=== PATIENT | female | born 2000 | race Caucasian/White ===

== ENCOUNTER → 2019-12-23 | Outpatient (CLI) | payer BC, SELFPAY ==
[2019-12-26 03:06] LABS: Chlamydia By Nucleic Acid AMP Negative (Negative)
[2019-12-26 14:07] LABS: Gonococcus By Nucleic Acid AMP Negative (Negative)
== END | disposition home or self-care (01) ==
PROVIDERS: Visit Provider Obstetrics & Gynecology
DX: Z11.3 Encounter for screening for infections with a predominantly sexual mode of transmission (principal)
CPT/HCPCS: 87491; 87591

== ENCOUNTER → 2020-01-08 13:00 | Outpatient (CLI) | payer BC, SELFPAY ==
[2020-01-08 15:56] LABS: Absolute Lymphocyte Count 2.34 X10^3/uL (0.83-4.51); Absolute Neutrophil Count 5.1 X10^3/uL (2.0-7.7); Basophil# 0.03 X10^3/uL; Basophil% 0.4 % (0-1); Eosinophil# 0.12 X10^3/uL; Eosinophils% 1.5 % (0-5); Hematocrit 37.9 % (37-47); Hemoglobin 12.6 g/dL (12.0-15.0); Lymphocyte # 2.34 X10^3/ul (4.0); Lymphocyte % 28.4 % (19-41); Mean Corp Hgb Conc 33.2 g/dL (32-36); Mean Corpuscular Hgb 29.4 pg (27.0-32.0); Mean Corpuscular Volume 88.6 fL (81-99); Mean Platelet Vol. 12.2 fl (6.2-12.0); Monocyte# 0.59 X10^3/uL; Monocyte% 7.2 % (0-10); NRBC Flagged by Analyzer 0 % (0-5); Neutrophil # 5.14 X10^3/uL (2.7-7.7); Neutrophil % 62.1 % (47-70); Platelet Count 223 K/mm3 (150-450); RBC Distribution Width CV 13.2 % (11.6-14.6); Red Blood Count 4.28 M/mm3 (4.2-5.4); White Blood Count 8.3 K/mm3 (4.4-11.0)
[2020-01-11 18:03] LABS: HIV - WCH Non-Reactive (Nonreactive); Hepatitis B Surface Antigen Non-Reactive (Nonreactive); Hepatitis C Antibody Non-Reactive (Nonreactive); Rubella IgG 58.6 IU/mL
[2020-01-14 01:11] LABS: Prenatal RPR NONREACTIVE (NONREACTIVE)
== END ==
PROVIDERS: Visit Provider Obstetrics & Gynecology
DX: Z34.81 Encounter for supervision of other normal pregnancy, first trimester (principal)
CPT/HCPCS: 85025; 86703; 86762; 86803; 87086; 87340

== ENCOUNTER → 2020-06-21 16:47 | Outpatient (CLI) | payer BC, MEDICAID, SELFPAY ==
--- NOTE | 2020-06-21 16:55 | EKG12_ITS ---
Test Reason : SYNCOPE Blood Pressure : / mmHG Vent. Rate : 074 BPM Atrial Rate : 074 BPM P-R Int : 120 ms QRS Dur : 086 ms QT Int : 352 ms P-R-T Axes : 019 075 039 degrees QTc Int : 390 ms Normal sinus rhythm with sinus arrhythmia Normal ECG Confirmed by ANNE SEN, JOSEY ([id number]), science editor FRANK RODRIGUEZ ([id number]) on 06/24/2020 2:31:58 PM Referred By: Michael Benjamin Confirmed By:JOSEY RODRÍGUEZ MD
== END ==
PROVIDERS: Referring Provider Obstetrics & Gynecology; Visit Provider Obstetrics & Gynecology
DX: O99.891 Other specified diseases and conditions complicating pregnancy (principal); R00.2 Palpitations; Z3A.00 Weeks of gestation of pregnancy not specified
CPT/HCPCS: 93005

== ENCOUNTER → 2020-07-14 | Outpatient (CLI) | payer BC, MEDICAID, SELFPAY | END | disposition home or self-care (01) | PROVIDERS: Visit Provider Obstetrics & Gynecology | DX: Z36.85 Encounter for antenatal screening for Streptococcus B (principal) | CPT/HCPCS: 87081 ==

== ENCOUNTER 2020-07-25 07:15 | Inpatient (IN) | payer BC, MEDICAID, SELFPAY ==
[2020-07-25] VITALS (63 sets, daily range): BP systolic 94–147; BP diastolic 50–92; PULSE 66–129; RESP 18; TEMP 35.7–37.2; O2SAT 95–100; BMI 29.9
[2020-07-25] MEDS: 0.9% Saline Lock 10 ML Syringe IV ×3 (07:44→20:46)
[2020-07-25 08:03] LABS: Absolute Lymphocyte Count 2.14 X10^3/uL (0.83-4.51); Absolute Neutrophil Count 4.8 X10^3/uL (2.0-7.7); Basophil# 0.03 X10^3/uL; Basophil% 0.4 % (0-1); Eosinophil# 0.09 X10^3/uL; Eosinophils% 1.2 % (0-5); Hematocrit 35.8 % (37-47); Hemoglobin 11.5 g/dL (12.0-15.0); Lymphocyte # 2.14 X10^3/ul (0.83-4.51); Lymphocyte % 27.9 % (19-41); Mean Corp Hgb Conc 32.1 g/dL (32-36); Mean Corpuscular Hgb 28.5 pg (27.0-32.0); Mean Corpuscular Volume 88.6 fL (81-99); Mean Platelet Vol. 13.4 fl (6.2-12.0); Monocyte# 0.62 X10^3/uL; Monocyte% 8.1 % (0-10); NRBC Flagged by Analyzer 0 % (0-5); Neutrophil # 4.78 X10^3/uL (2.7-7.7); Neutrophil % 62.1 % (47-70); Platelet Count 153 K/mm3 (150-450); RBC Distribution Width CV 12.5 % (11.6-14.6); RBC Distribution Width SD 40.8 fl (35.1-43.9); Red Blood Count 4.04 M/mm3 (4.2-5.4); White Blood Count 7.7 K/mm3 (4.4-11.0)
[2020-07-25 08:38] LABS: ALB/GLOB Ratio 0.7 RATIO (0.9-2.4); AST(SGOT) 15 U/L (15-37); Alanine Aminotransfer ALT/SGPT 13 U/L (13-56); Albumin, Serum 2.6 g/dL (3.2-5.0); Alkaline Phosphatase 131 U/L (45-117); Anion Gap 7 (5-15); BUN 11 mg/dL (7-18); BUN/Creat Ratio 12.9 RATIO (10-20); Calcium,Total 8.9 mg/dL (8.5-10.1); Chloride 109 mmol/L (98-107); Creatinine, Serum 0.86 mg/dL (0.55-1.02); EST Glomerular Filtration Rate 88 mL/min (>60); Est Glom Filt Rate - Afr Amer 106 mL/min (>60); Estimated Creatinine Clearance 81.15 ml/min; Globulin 3.9 g/dL (2.2-4.2); Glucose 85 mg/dL (74-106); LDH 188 U/L (84-246); Potassium 3.7 mmol/L (3.5-5.1); Protein, Total 6.5 g/dL (6.4-8.2); Sodium Level 139 mmol/L (136-145)
[2020-07-25] MEDS: Lactated Ringers 1,000 ML 50 ML IV (08:42)
--- NOTE | 2020-07-25 08:56 | PCM.HP.BLA ---
History and Physical Date of Admission: 07/25/20 Chief complaint: Induction of labor IUGR History of present illness: 20-year-old G1, P0 at 38 weeks and 2 days with GUERDA: 08/06/2020 by LMP arrives for induction of labor for IUGR. Denies headache, visual changes, chest pain, shortness of breath, right upper quadrant pain. Patient states good movement. Obstetrical history: G1: Current Past medical history: None Medications: vitamin Past surgical history: None Allergies: No known drug allergies Social history: Denies history of smoking, alcohol use, drug use Family history: Denies history of DVT or PE Review of systems: Besides above pertinent positive for review of systems performed found to be negative Physical exam: Vitals: Blood pressure 123/59 pulse 77 SPO2 100% on room air General: Normal-appearing no acute distress HEENT: Normocephalic atraumatic no cervical lymphadenopathy. Pupils equal round and reactive to light Cardiac: Regular rate and rhythm no murmurs rubs or gallops Respiratory: Clear to auscultation bilaterally with no wheezes rales or crackles Abdomen: Soft, nontender, gravid Extremities: No peripheral edema normal peripheral pulses. Full range of motion in all extremities, strength 5 out of 5 in all extremities Neuro: Negative clonus, DTRs +2 in lower and upper extremities. Psych: Normal affect normal demeanor nonpressured speech Assessment and plan: 20-year-old G1, P0 at 30 weeks and 2 days arrives for induction of labor for IUGR and upon placing IV patient experienced loss of consciousness that lasted according nursing 20 seconds. Patient had small amounts of shaking during this time, a shivering motion, no obvious tonic-clonic movements. Patient recovered answering questions with no deficits, no loss of bladder. Overall within 10 to 20 minutes felt back to her baseline. Patient with a history of vasovagal x1 this but this was shorter and no shaking at that time witnessed by her FOB. The above was all witnessed by nursing, upon my examination patient comfortable in bed no overall deficits AOA x3, follows commands, no apparent distress. Patient states she does not remember the 20 seconds but feels that she is quickly recovered. heart tones overall remained stable with broken heart rate tracing around the time of incident. Blood pressures 90s/50s prior to IV placement, at this time vital signs stable. Discussed clinical picture with nursing staff and patient. EKG ordered. Cannot rule out eclampsia we will start magnesium 4 g bolus of 2 g an hour. Help labs with proteinuria. Will consult neurology stat and discuss their opinion. With patient remote from delivery discussed possible with patient. For now we will continue to monitor with category 1 tracing, vital signs stable. To make delivery decision after neurology consult, continue magnesium.
[2020-07-25 09:07] LABS: Protein:Creat Ratio 618 mg/g CRE (0-200)
--- NOTE | 2020-07-25 09:12 | TELEMED_ITS ---
[facility] has confirmed receipt of a request for visit. This document confirms receipt of the order initiating the consult. To find the results of the consultation, please view the patient's reports for the scanned Telemed Consult.
[2020-07-25] MEDS: Magnesium Sulfate 4gm/100mL 4 GM/100 ML IV.SOLN. IV (09:25)
--- NOTE | 2020-07-25 09:29 | EKG12_ITS ---
Test Reason : SIEZER Blood Pressure : / mmHG Vent. Rate : 098 BPM Atrial Rate : 098 BPM P-R Int : 118 ms QRS Dur : 086 ms QT Int : 344 ms P-R-T Axes : 052 069 027 degrees QTc Int : 439 ms Normal sinus rhythm Normal ECG When compared with ECG of 21-JUN-2020 17:09, No significant change was found Confirmed by SONIA SEN, [place] ([id number]), editor greeting card GUY LEACH ([id number]) on 07/26/2020 8:52:09 AM Referred By: IRMA ONEAL Confirmed By:NY SCOTT MD
[2020-07-25] MEDS: Magnesium Sulfate 20 GM/500 ML BAG IV (09:45)
--- NOTE | 2020-07-25 11:55 | PCM.PN.OB ---
Subjective Subjective: Patient resting comfortably in bed. No deficits. Denies headache, visual change, chest pain, shortness of breath, nausea vomiting, right upper quadrant pain. Objective Data Objective Data Vital Signs: Vital Signs Temp Pulse Resp BP Pulse Ox 96.3 F L 86 18 122/65 H 100 07/25/20 09:50 07/25/20 11:06 07/25/20 10:55 07/25/20 10:58 07/25/20 11:06 Oxygen Delivery Method Room Air Weight: 163 lb 12.855 oz Body Mass Index (BMI) 29.9 Intake & Output: Intake and Output for Last 24 Hours 07/23/20 07/24/20 07/25/20 23:59 23:59 23:59 Intake Total 270.83 / 270.83 Balance 270.83 / 270.83 Lab / Micro Data Result Diagrams: 07/25/20 07:44 07/25/20 08:10 Labs: Laboratory Results - last 24 hr 07/25/20 07/25/20 07/25/20 07:44 07:44 08:10 WBC 7.7 RBC 4.04 L Hgb 11.5 L Hct 35.8 L MCV 88.6 MCH 28.5 MCHC 32.1 RDW Std Deviation 40.8 RDW Coeff of Michelle 12.5 Plt Count 153 MPV 13.4 H Immature Gran % (Auto) 0.300 Neut % (Auto) 62.1 Lymph % (Auto) 27.9 Mcpherson % (Auto) 8.1 Eos % (Auto) 1.2 Baso % (Auto) 0.4 Absolute Neuts (auto) 4.8 Absolute Lymphs (auto) 2.14 Nucleated RBC % 0 Sodium 139 Potassium 3.7 Chloride 109 H Carbon Dioxide 23.0 Anion Gap 7 BUN 11 Creatinine 0.86 Estim Creat Clear Calc 81.15 Est GFR (MDRD) Af Amer 106 Est GFR (MDRD) Non-Af 88 BUN/Creatinine Ratio 12.9 Glucose 85 Calcium 8.9 Total Bilirubin 0.50 AST 15 ALT 13 Alkaline Phosphatase 131 H Lactate Dehydrogenase 188 Total Protein 6.5 Albumin 2.6 L Globulin 3.9 Albumin/Globulin Ratio 0.7 L U Random Total Protein Urine Creatinine Protein/Creatinin Ratio Blood Type O POSITIVE Antibody Screen NEGATIVE 07/25/20 08:30 WBC RBC Hgb Hct MCV MCH MCHC RDW Std Deviation RDW Coeff of Michelle Plt Count MPV Immature Gran % (Auto) Neut % (Auto) Lymph % (Auto) Mcpherson % (Auto) Eos % (Auto) Baso % (Auto) Absolute Neuts (auto) Absolute Lymphs (auto) Nucleated RBC % Sodium Potassium Chloride Carbon Dioxide Anion Gap BUN Creatinine Estim Creat Clear Calc Est GFR (MDRD) Af Amer Est GFR (MDRD) Non-Af BUN/Creatinine Ratio Glucose Calcium Total Bilirubin AST ALT Alkaline Phosphatase Lactate Dehydrogenase Total Protein Albumin Globulin Albumin/Globulin Ratio U Random Total Protein 170.0 H Urine Creatinine 275.00 Protein/Creatinin Ratio 618 H Blood Type Antibody Screen Micro: Microbiology 07/25/20 08:05 Mucosa - Nose SARS-CoV-2 Antigen (Rapid) - Final Physical Exam Const alert, oriented x3 and no apparent distress HEENT normocephalic Head and Scalp: atraumatic Eyes PERRL Neck full ROM Resp normal respiratory effort, no retractions and no use of accessory muscles Extremity normal to inspection, full ROM and no clubbing, cyanosis or edema Psych mental status grossly normal, affect normal and speech normal Assessment & Plan (1) : PLAN: Patient seen and examined. With no changes. Still feeling well. Discussed case with neurology and patient was seen virtually with neurology. Based on negative exam and history neurology believes it to be syncope. No concerns for epilepsy or eclampsia per their recommendations. Based on diagnosis of syncope discussed case with patient. HELLP labs negative except for proteinuria cannot rule out contamination versus gestational proteinuria with no elevated blood pressures and the fact that diagnosis of syncope and not seizure has been made no concern for eclampsia. Reviewed options with patient risk benefits alternatives who feels comfortable continuing induction of labor. Category 1 tracing. We will continue Cytotec induction. Educated patient on syncope during labor and its risks. Patient states understanding wish to proceed.
[2020-07-25] MEDS: miSOPROStol 25 MCG TABLET VAGINAL (12:05)
[2020-07-25] MEDS: fentaNYL 100 MCG/2 ML Ampul IV (16:51)
[2020-07-25] MEDS: Oxytocin 30 units/NS 500 ml 30 UNITS/500 ML IV.SOLN 334 UNITS IV (18:16)
[2020-07-25] MEDS: Methylergonovine 0.2 MG/ML Ampul IM (18:19)
[2020-07-25] MEDS: HYDROmorphone 1 MG/ML Syringe IV (18:40)
--- NOTE | 2020-07-25 18:57 | EX.PCM.OBRPT ---
Vaginal Delivery Operative Information Date of Procedure: 07/25/20 Pre-Operative Diagnosis: Term, IUGR Post-Operative Diagnosis: Term, IUGR Findings Description of Procedure: Normal spontaneous vaginal delivery of a viable female , vertex LIZETT. Head and shoulders delivered with ease. Cord cut clamped. Baby handed off to nursing. Placenta delivered via manual extraction secondary to cord avulsion. IV oxytocin was initiated to facilitate uterine contractions. 0.2 mg Methergine IM given. First-degree midline perineal laceration noted and repaired in typical fashion. EBL 400 cc Apgars 9/9
[2020-07-25] MEDS: Ibuprofen 600 MG Tablet PO (20:36)
[2020-07-26 00:46] VITALS: BP 123/57; PULSE 89; RESP 16; TEMP 37.1
[2020-07-26 03:55] VITALS: BP 115/60; PULSE 87; RESP 14; TEMP 36.9
--- NOTE | 2020-07-26 06:09 | PCM.PN.OB ---
Subjective Subjective: day 1 status post . Lochia minimal. Pain controlled. Breast-feeding. No further episodes of syncope per patient or her . No confusion, dizziness, lightheadedness.No headache, vision changes, chest pain, shortness of breath, nausea or vomiting. No right upper quadrant pain. Objective Data Objective Data Vital Signs: Vital Signs Temp Pulse Resp BP Pulse Ox 98.5 F 87 14 115/60 100 07/26/20 03:55 07/26/20 03:55 07/26/20 03:55 07/26/20 03:55 07/25/20 20:53 Oxygen Delivery Method Room Air Weight: 74.3 kg Body Mass Index (BMI) 29.9 Intake & Output: Intake and Output for Last 24 Hours 07/24/20 07/25/20 07/26/20 23:59 23:59 23:59 Intake Total 1249.16 / 1249.16 Output Total 150 / 150 100 / 100 Balance 1099.16 / 1099.16 -100 / -100 Lab / Micro Data Result Diagrams: 07/25/20 07:44 07/25/20 08:10 Labs: Laboratory Results - last 24 hr 07/25/20 07/25/20 07/25/20 07:44 07:44 08:10 WBC 7.7 RBC 4.04 L Hgb 11.5 L Hct 35.8 L MCV 88.6 MCH 28.5 MCHC 32.1 RDW Std Deviation 40.8 RDW Coeff of Michelle 12.5 Plt Count 153 MPV 13.4 H Immature Gran % (Auto) 0.300 Neut % (Auto) 62.1 Lymph % (Auto) 27.9 [place] % (Auto) 8.1 Eos % (Auto) 1.2 Baso % (Auto) 0.4 Absolute Neuts (auto) 4.8 Absolute Lymphs (auto) 2.14 Nucleated RBC % 0 Sodium 139 Potassium 3.7 Chloride 109 H Carbon Dioxide 23.0 Anion Gap 7 BUN 11 Creatinine 0.86 Estim Creat Clear Calc 81.15 Est GFR (MDRD) Af Amer 106 Est GFR (MDRD) Non-Af 88 BUN/Creatinine Ratio 12.9 Glucose 85 Calcium 8.9 Total Bilirubin 0.50 AST 15 ALT 13 Alkaline Phosphatase 131 H Lactate Dehydrogenase 188 Total Protein 6.5 Albumin 2.6 L Globulin 3.9 Albumin/Globulin Ratio 0.7 L U Random Total Protein Urine Creatinine Protein/Creatinin Ratio Blood Type O POSITIVE Antibody Screen NEGATIVE 07/25/20 08:30 WBC RBC Hgb Hct MCV MCH MCHC RDW Std Deviation RDW Coeff of Michelle Plt Count MPV Immature Gran % (Auto) Neut % (Auto) Lymph % (Auto) [place] % (Auto) Eos % (Auto) Baso % (Auto) Absolute Neuts (auto) Absolute Lymphs (auto) Nucleated RBC % Sodium Potassium Chloride Carbon Dioxide Anion Gap BUN Creatinine Estim Creat Clear Calc Est GFR (MDRD) Af Amer Est GFR (MDRD) Non-Af BUN/Creatinine Ratio Glucose Calcium Total Bilirubin AST ALT Alkaline Phosphatase Lactate Dehydrogenase Total Protein Albumin Globulin Albumin/Globulin Ratio U Random Total Protein 170.0 H Urine Creatinine 275.00 Protein/Creatinin Ratio 618 H Blood Type Antibody Screen Micro: Microbiology 07/25/20 08:05 Mucosa - Nose SARS-CoV-2 Antigen (Rapid) - Final ROS Constitutional Constitutional: Denies fever(s) Eyes Eyes: Denies change in vision ENT HEENT: Denies dizziness or headache(s) Cardiovascular Cardiovascular: Denies chest pain or dyspnea Respiratory/Chest Respiratory/Chest: Denies cough Gastrointestinal Gastrointestinal: Denies constipation, diarrhea or vomiting Genitourinary Genitourinary: Denies difficulty urinating Musculoskeletal Musculoskeletal: Denies difficulty walking Integumentary Integumentary: Denies rash Neurologic Neurologic: Denies confusion, dizziness, headache(s), seizures, syncope or weakness Physical Exam Const alert, oriented x3 and no apparent distress HEENT normocephalic Head and Scalp: atraumatic Eyes PERRL Neck full ROM Resp normal respiratory effort and clear to auscultation bilaterally Cardio regular rate and regular rhythm GI normal to inspection, nondistended, normoactive bowel sounds GI Narrative: Uterus 2 cm below umbilicus Extremity no pedal edema Skin no rashes or lesions noted Neuro moves all extremities, no focal motor deficits and no sensory deficits noted Motor Exam: muscle tone normal throughout Psych mental status grossly normal, affect normal, speech normal and activity/motor behavior normal Assessment & Plan (1) Vaginal delivery: PLAN: day 1 status post . Patient had syncopal episode after IVs inserted yesterday prior to induction. She had neurological evaluation via telehealth consult during which the neurologist deemed episode to be syncopal with no need for further work-up. Patient has felt well since then no further episodes per her or her . Asymptomatic at this time. Recommend further monitoring throughout the day and discharge tomorrow morning. Discussed with patient. Gestational proteinuria: No elevated blood pressures noted. (2) Syncope with normal neurologic examination:
[2020-07-26] MEDS: 0.9% Saline Lock 10 ML Syringe IV (06:30)
[2020-07-26 08:28] VITALS: BP 106/66; PULSE 86; RESP 16; TEMP 36.4
[2020-07-26] MEDS: Ibuprofen 600 MG Tablet PO (08:36)
[2020-07-26 11:38] VITALS: BP 112/58; PULSE 98; RESP 16; TEMP 36.5
[2020-07-26 16:26] VITALS: BP 95/67; PULSE 89; RESP 16; TEMP 36.5
--- NOTE | 2020-07-26 19:21 | PCM.PN.BLA ---
Progress Note Pt requests discharge. hx and chart reviewed. PPD#1 s/p following IOL for IUGR. On admission had syncopal episode with subsequent preeclamptic workup significant for proteinuria, otherwise, serum labs wnl. Vitals reviewed. Given proteinuria will continue to observe overnight with plan to d/c in am.
[2020-07-26 20:10] VITALS: BP 112/70; PULSE 85; RESP 16; TEMP 36.3
[2020-07-27 01:30] VITALS: BP 99/62; PULSE 84; RESP 16; TEMP 36.3
[2020-07-27 08:00] VITALS: BP 111/59; PULSE 80; RESP 14; TEMP 36.4
--- NOTE | 2020-07-27 08:59 | PCM.DC.SUM ---
Providers Date of Admission: 07/25/20 Primary Care Physician: [facility] Primary Care Phys Reason For Visit: VAG DELIVERY Diagnosis Discharge Diagnosis (1) Vaginal delivery: Status: Acute Code(s): O80 - Encounter for full-term uncomplicated delivery (2) Syncope with normal neurologic examination: Status: Acute Code(s): R55 - Syncope and collapse Medications at Discharge Home Medications Prenatabs FA 1 tab PO DAILY 07/25/20 famotidine [Pepcid] 20 mg PO PRN PRN 07/25/20 ibuprofen 600 mg PO Q6H PRN PRN #30 tab 07/27/20 Hospital Course Operations None Summary of Care Provided Hospital Course: 20yo G1 presented at 38 3/7 weeks gestation for scheduled induction of labor for IUGR. She had a syncopal episode on admission IV placement followed by convulsive like activity. Neurology consultation was obtained and confirmed patient had syncope and preeclampsia work up was negative. She had an uncomplicated and was discharged to home on post- day #2. Physical Exam Const alert, oriented x3 and no apparent distress Resp normal respiratory effort and normal air movement Cardio regular rate, regular rhythm, S1 normal heart sound and S2 normal heart sound Uterus Palpation: uterus fundus firm and other OB fundus nontender Extremity no calf tenderness Neuro oriented x3 ABG / Lab / Microbiology Data Result Diagrams: 07/25/20 07:44 07/25/20 08:10 Microbiology: Microbiology 07/25/20 08:05 Mucosa - Nose SARS-CoV-2 Antigen (Rapid) - Final D/C Instructions Discharge Diet: No restrictions May resume sexual activity in: 4-6 weeks Call your doctor if you observe: Fever of 101 or Higher, Inability to urinate, Using more than one pad per hour, Shortness of breath, Chest pain, Calf discomfort and Uncontrolled pain Please Follow Up With: Michael Benjamin MD When: 3 weeks telehealth and 6 weeks Meaningful Use Info Meaningful Use Diagnoses (Choose all that apply): None applicable Discharge Plan Admission Admit Date/Time: 07/25/20 07:15 Primary Reason for Your Visit: Attending Provider: Michael Benjamin Primary Care Provider: Care Physician,No Primary Instructions Patient Instructions: After a Vaginal Discharge Orders/Prescriptions Prescriptions: New ibuprofen 600 mg Tablet 600 mg PO Q6H PRN PRN (Reason: Pain Score 1-10) Qty: 30 RF: 0 Continued famotidine [Pepcid] 20 mg Tablet 20 mg PO PRN PRN (Reason: Heartburn) RF: 0 Prenatabs FA 29-1 mg Tablet 1 tab PO DAILY RF: 0 Referrals / Follow Up: Care Physician,No Primary [Primary Care Provider] - Disposition Disposition (needs filled in before D/C Order can be placed): Home, self care
== END 2020-07-27 11:00 | disposition home or self-care (01) | DRG 806 ==
PROVIDERS: Admitting Provider Obstetrics & Gynecology; Visit Provider Obstetrics & Gynecology
DX: O36.5930 Maternal care for other known or suspected poor fetal growth, third trimester, not applicable or unspecified (principal); O99.354 Diseases of the nervous system complicating childbirth; Z37.0 Single live birth; O70.0 First degree perineal laceration during delivery; Z3A.38 38 weeks gestation of pregnancy; R55 Syncope and collapse
CPT/HCPCS: 59025; 59050; 80053; 82570; 83615; 84156; 85025; 86850; 86900; 86901; 87426; 93005; 99218; J7120; A4216; G0378

== ENCOUNTER → 2022-06-13 | Outpatient (CLI) | payer BC, MEDICAID, SELFPAY ==
[2022-06-13 15:09] LABS: Absolute Lymphocyte Count 2.14 X10^3/uL (0.83-4.51); Absolute Neutrophil Count 3.5 X10^3/uL (2.0-7.7); Basophil# 0.03 X10^3/uL; Basophil% 0.5 % (0-1); Eosinophil# 0.13 X10^3/uL; Eosinophils% 2.1 % (0-5); Hematocrit 41.3 % (37-47); Hemoglobin 13.2 g/dL (12.0-15.0); Lymphocyte # 2.14 X10^3/ul (0.83-4.51); Lymphocyte % 34.2 % (19-41); Mean Corpuscular Hgb 28.4 pg (27.0-32.0); Mean Corpuscular Volume 88.8 fL (81-99); Mean Platelet Vol. 11.4 fl (6.2-12.0); Monocyte# 0.48 X10^3/uL; Monocyte% 7.7 % (0-10); NRBC Flagged by Analyzer 0 % (0-5); Neutrophil # 3.47 X10^3/uL (2.7-7.7); Neutrophil % 55.3 % (47-70); Platelet Count 270 K/mm3 (150-450); RBC Distribution Width CV 13.9 % (11.6-14.6); RBC Distribution Width SD 45.1 fl (35.1-43.9); Red Blood Count 4.65 M/mm3 (4.2-5.4); White Blood Count 6.3 K/mm3 (4.4-11.0)
[2022-06-13 16:31] LABS: Anion Gap 6 (5-15); BUN 12 mg/dL (7-18); BUN/Creat Ratio 13.5 RATIO (10-20); Calcium,Total 8.9 mg/dL (8.5-10.1); Chloride 106 mmol/L (98-107); Creatinine, Serum 0.89 mg/dL (0.55-1.02); EST Glomerular Filtration Rate 82 mL/min (>60); Est Glom Filt Rate - Afr Amer 100 mL/min (>60); Glucose 86 mg/dL (74-106); Potassium 3.9 mmol/L (3.5-5.1); Sodium Level 138 mmol/L (136-145); T4 Total, Thyroxin 9.3 ug/dL (4.8-13.9); Thyroid Stim Hormone (TSH) 1.32 uIU/mL (0.358-3.74)
== END | disposition home or self-care (01) ==
LOC: LAB 14:39
PROVIDERS: Referring Provider Internal Medicine Cardiovascular Disease; Visit Provider Internal Medicine Cardiovascular Disease
DX: R00.2 Palpitations (principal)
CPT/HCPCS: 36415; 80048; 84436; 84443; 85025

== ENCOUNTER → 2022-07-12 | Outpatient (CLI) | payer BC, MEDICAID, SELFPAY ==
--- NOTE | 2022-07-12 13:02 | ECHOD_ITS ---
Reason For Study: Palpitations Procedure This was a 2D Doppler, Color Flow transthoracic echocardiogram. Exam performed in department. Left Ventricle Normal LV size. Left ventricular systolic function is normal. The estimated ejection fraction is 55 %. No regional wall motion abnormalities noted. Right Ventricle Normal RV size. Normal systolic function. Atria Normal left atrium. Normal right atrium. Mitral Valve Normal mitral valve. Tricuspid Valve Normal tricuspid valve. Aortic Valve Trisinus/trileaflet aortic valve. Pulmonic Valve Normal pulmonic valve. Great Vessels Normal aortic root. The pulmonary artery is normal size. Normal inferior vena cava. Pericardium/Pleural No pericardial effusion. MMode/2D Measurements & Calculations LVIDd: 4.9 cm IVSd: 0.78 cm LA dimension: 3.3 cm LVIDs: 3.2 cm LVPWd: 0.71 cm RVDd: 3.0 cm FS: 34.2 % LAV(MOD-bp): 38.8 ml LA A4 area: 14.3 cm2 RA A4 area: 9.9 cm2 LAV(MOD-bp) Indexed: 22.2 ml/m2 LAV(MOD-sp2): 44.3 ml LAV(MOD-sp4): 33.9 ml Time Measurements MV dec time: 0.17 sec Doppler Measurements & Calculations MV E max brody: 89.3 cm/sec Lat Peak E' Brody: 21.2 cm/sec Med Peak E' Brody: 17.6 cm/sec MV A max brody: 48.0 cm/sec E/E' lat: 4.2 E/E' med: 5.1 MV E/A: 1.9 MV V2 max: 103.9 cm/sec MV P1/2t max brody: 106.5 cm/sec Ao V2 max: 131.0 cm/sec MV max P.3 mmHg MV P1/2t: 60.1 msec Ao max P.9 mmHg MV V2 mean: 52.3 cm/sec MV dec slope: 518.6 cm/sec2 MV mean P.3 mmHg MVA(P1/2t): 3.7 cm2 MV V2 VTI: 22.2 cm LV V1 max: 112.3 cm/sec PA V2 max: 111.4 cm/sec TR max brody: 210.7 cm/sec LV V1 max P.1 mmHg PA V2 mean: 80.8 cm/sec TR max P.8 mmHg ECHO/Echo Complete Interpretation Summary Left ventricular systolic function is normal. Normal LV size. The estimated ejection fraction is 55 %. Structurally normal valves. Ordering Physician: Rolly Levi Referring Physician: Rolly Levi Performed By: Gerardo Whalen RCS
== END | disposition home or self-care (01) ==
LOC: CVS 13:01
PROVIDERS: Referring Provider Internal Medicine Cardiovascular Disease; Visit Provider Internal Medicine Cardiovascular Disease
DX: R00.2 Palpitations (principal)
CPT/HCPCS: 93225; 93226; 93306

== ENCOUNTER 2022-12-08 01:37 | Emergency (ER) | payer BC, MEDICAID, SELFPAY ==
[2022-12-08 01:38] VITALS: BP 141/88; PULSE 84; RESP 18; TEMP 36.1; O2SAT 99; BMI 32.3
[2022-12-08 02:04] LABS: Mucous, Urine 0 SEEN /hpf (<or=2+); Red Blood Cells-Urine 0 SEEN /hpf (0-5); Squamous Epithelial Cells - UA 0 SEEN /hpf (5-10); White Blood Cells 0 SEEN /hpf (0-5)
[2022-12-08 02:06] LABS: Color, Urine Yellow (Yellow); Glucose, Dipstick Normal (Normal); Ketone-Dipstick Negative (Negative); Leukocyte Esterase-Dipstick Negative /ul (Negative); Nitrite-Dipstick Negative (Negative); Occult Blood-Urine Negative /ul (Negative); Protein-Dipstick 15 mg/dl (Negative); Specific Gravity, Urine 1.015 (1.002-1.030); Urine Bilirubin Dipstick Negative (Negative); Urine Clarity Clear (Clear); Urine Urobilinogen Normal (Normal)
[2022-12-08 02:09] LABS: Internal QC Validated? YES +Cl - CLEAR BKGD; Pregnancy, Urine Negative Negative; Record Kit Lot#,Urine Preg HCG0000667200
[2022-12-08 02:12] LABS: Amorphous Sediment RARE; Bacteria RARE /hpf (None Seen)
--- NOTE | 2022-12-08 02:42 | EDS_ITS ---
HPI HPI - Female History of Present Illness Chief Complaint: Female C/O Informant: patient Narrative Narrative: Patient is a 22-year-old female with past medical history of major depressive disorder and borderline personality disorder. She states that she recently had unprotected sexual intercourse and received a phone call stating that there was concern that her partner may have a STD. The patient states she does not have any symptoms such as dysuria vaginal discharge or lesions but became very nervous over the phone call and secondary to this presents to the ER for evaluation. Patient denies any concern for PFSH PFSH Medical History Allergies Borderline personality disorder Generalized headaches History of emotional problems MDD (major depressive disorder), recurrent episode, mild Palpitations SOB (shortness of breath) Vaginal delivery Home Medications escitalopram oxalate 10 mg tablet (Lexapro) 10 mg PO DAILY #30 tabs 11/06/22 [Rx Last Taken Unknown] hydroxyzine HCl 25 mg tablet 25 mg PO TID PRN anxiety #90 tabs 11/06/22 [Rx Last Taken Unknown] doxycycline hyclate 100 mg capsule 100 mg PO BID 7 days #14 caps 12/08/22 [Rx Last Taken Unknown] Allergy/AdvReac Type Severity Reaction Status Date / Time No Known Allergies Allergy Verified 12/08/22 01:41 Surgical History H/O wrist surgery Social History Smoking Status: Never smoker alcohol intake: current substance use type: does not use caffeine: Yes ROS ROS ED Constitutional Constitutional ED: Denies chills or fever(s) ENT ENT ED: Denies sore throat Cardiovascular Cardiovascular: Denies chest pain Respiratory/Chest Respiratory/Chest: Denies cough or dyspnea Gastrointestinal Gastrointestinal: Denies abdominal pain, diarrhea, nausea or vomiting Genitourinary Genitourinary ED: Denies dysuria, hematuria or urinary frequency Musculoskeletal Musculoskeletal: Denies myalgias Integumentary Denies rash Neurologic Neurologic: Denies headache(s) Psychiatric Psychiatric: Reports anxiety Hematologic/Lymphatic Hematologic/Lymphatic: Denies easy bleeding or easy bruising EXAM Physical Exam Const Vital Signs: 12/08/22 01:38 Temperature 97 F L Temperature Source Temporal Pulse Rate 84 Respiratory Rate 18 Blood Pressure 141/88 H Blood Pressure Mean 105 Pulse Ox 99 Oxygen Delivery Method Room Air Positive well nourished and well developed General Appearance ED: well developed HEENT HEENT Narrative: Normocephalic atraumatic Eyes PERRL and EOMs intact bilaterally Neck supple Resp normal respiratory effort and clear to auscultation bilaterally Cardio regular rate and regular rhythm GI normal to inspection, nondistended, normoactive bowel sounds, soft to palpation, non-tender, non-distended and no masses Auscultation: normoactive bowel sounds Palpation: soft Narrative: Patient deferred Back/Spine no CVA tenderness Extremity normal to inspection Neuro oriented x3 and CN's II-XII intact bilaterally Sensorium / Orientation: alert Psych mental status grossly normal Skin no rashes or lesions noted MDM MDM MDM Narrative Medical decision making narrative: Patient presented to the ER slightly hypertensive otherwise with stable vital. She denied any symptoms such as discharge lesions or dysuria but with potential exposure a urine sample was obtained as well as and gonorrhea and chlamydia sample. Urine showed no signs of infection or . At this time gonorrhea and Chlamydia sample are still pending but as patient has concern about potential exposure she will be treated with Rocephin and doxycycline. As she does not have physical exam findings concerning for pelvic inflammatory disease or acute pyelonephritis there is no need for further work-up and she is otherwise safe for discharge. History & Record Review Discussion w/independent historian: Patient Lab Data Attestation: I reviewed the patient's lab results. Labs: Laboratory Results - last 24 hr 12/08/22 01:45 Urine Color Yellow Urine Clarity Clear Urine pH 7.0 Ur Specific [place] 1.015 Urine Protein 15 H Urine Glucose (UA) Normal Urine Ketones Negative Urine Occult Blood Negative Urine Nitrite Negative Urine Bilirubin Negative Urine Urobilinogen Normal Ur Leukocyte Esterase Negative Urine RBC 0 SEEN Urine WBC 0 SEEN Ur Squamous Epith Cells 0 SEEN Amorphous Sediment RARE Urine Bacteria RARE Urine Mucus 0 SEEN Urine Test Negative Chlamydia DNA (PETERSON) Cancelled N.gonorrhoeae DNA ([facility]ERSON) Cancelled Discharge Plan Triage Chief Complaint: Female C/O ED Provider: [facility] Dx/Rx/DC Orders Clinical Impression: Potential exposure to STD, Borderline personality disorder Instructions: ED Testing for Suspected STI Prescriptions: New doxycycline hyclate 100 mg capsule 100 mg PO BID 7 Days Qty: 14 0RF No Action hydroxyzine HCl 25 mg tablet 25 mg PO TID PRN (Reason: anxiety) Qty: 90 1RF escitalopram oxalate [Lexapro] 10 mg tablet 10 mg PO DAILY Qty: 30 2RF Primary Care Provider: Care Physician,No Primary Referrals: Care Physician,No Primary [Primary Care Provider] - Activity Restrictions/Additional Instructions: You are being treated for gonorrhea and chlamydia with Rocephin in the ER and doxycycline for home. Please refrain from sexual activity for the next 7 days and if you have any further concerns or worsening of symptoms please return for repeat evaluation. Disposition Disposition: Home, Self Care Discharge Date/Time: 12/08/22 03:34
[2022-12-08] MEDS: Ceftriaxone 500 MG Vial IM (03:29)
[2022-12-08] MEDS: Doxycycline 100 MG CAPSULE PO (03:29)
== END 2022-12-08 03:34 | disposition home or self-care (01) ==
PROVIDERS: Emergency Provider Emergency Medicine; Visit Provider Emergency Medicine
DX: Z20.2 Contact with and (suspected) exposure to infections with a predominantly sexual mode of transmission (principal); F60.3 Borderline personality disorder; F32.9 Major depressive disorder, single episode, unspecified; F41.9 Anxiety disorder, unspecified; Z11.3 Encounter for screening for infections with a predominantly sexual mode of transmission
CPT/HCPCS: 81001; 81025; 87491; 87591; 96372; 99283

== ENCOUNTER → 2023-09-05 | Outpatient (CLI) | payer OTHER, SELFPAY ==
[2023-09-05 11:04] LABS: Mucous, Urine 0 SEEN /hpf (<or=2+)
[2023-09-05 12:21] LABS: Glucose, Dipstick Normal (Normal); Ketone-Dipstick 5 mg/dl (Negative); Leukocyte Esterase-Dipstick 100 /ul (Negative); Nitrite-Dipstick Positive (Negative); Occult Blood-Urine 25 /ul (Negative); Protein-Dipstick 30 mg/dl (Negative); Urine Clarity Cloudy (Clear); Urine Urobilinogen 8 mg/dl (Normal)
[2023-09-05 12:41] LABS: Color, Urine SEE COMMENT BELOW (Yellow); Urine Bilirubin Dipstick 6 mg/dL (Negative)
[2023-09-05 12:54] LABS: Bacteria 3+ /hpf (None Seen); White Blood Cells 25-50 SEEN /hpf (0-5)
[2023-09-05 12:55] LABS: Red Blood Cells-Urine 0-5 SEEN /hpf (0-5); Squamous Epithelial Cells - UA 5-10 SEEN /hpf (5-10)
== END | disposition home or self-care (01) ==
LOC: LABSPEC 11:02
PROVIDERS: Visit Provider Physician Assistant
DX: R30.0 Dysuria (principal)
CPT/HCPCS: 81001; 87077; 87086; 87088; 87186